=== PATIENT | male | born 1975 | race Two or more races ===

== ENCOUNTER 2021-09-15 07:54 | Day surgery (SDC) | payer OTHER ==
[2021-09-15] MEDS ORDERED: PERCOCET 5-3251 EACH PO (11:46)
== END 2021-09-15 14:20 | disposition home or self-care (01) ==
LOC: CIR.AMB 07:54
PROVIDERS: ATTEND Surgery
DX: C20 Malignant neoplasm of rectum (principal); Z20.822 Contact with and (suspected) exposure to COVID-19
CPT/HCPCS: 36561; C1751

== ENCOUNTER 2021-11-09 11:47 | Emergency (ER) | payer OTHER ==
[~2021-11-09] VITALS: Ht 188 cm; Wt 70.3 kg
[~2021-11-09 11:47] MED LIST: PERCOCET 5-3251 EACH PO
[2021-11-09] MEDS ORDERED: GLUMETZA1000 MG PO (12:06)
[2021-11-10] MEDS ORDERED: [UNRECOGNIZED DRUG - OTHER] (08:41)
[2021-11-10] MEDS ORDERED: ONDANSETRON4 MG/2 M5 (08:41)
[2021-11-10] MEDS ORDERED: OMEPRAZOLE20 MG (08:42)
[2021-11-10] MEDS ORDERED: STOOL SOFTENER240 MG (08:42)
[2021-11-10] MEDS ORDERED: ULTRAM50 MG PO (12:11)
[2021-11-10] MEDS ORDERED: AMOX-CLAV 875-1 EACH PO (12:15)
== END 2021-11-09 12:40 | disposition left against medical advice (07) ==
LOC: ER 11:47
DX: T82.7XXA Infection and inflammatory reaction due to other cardiac and vascular devices, implants and grafts, initial encounter (principal); Z53.29 Procedure and treatment not carried out because of patient's decision for other reasons

== ENCOUNTER 2021-11-09 15:25 | Inpatient (IN) | payer OTHER ==
[~2021-11-09] VITALS: Ht 172.7 cm; Wt 59.0 kg
[~2021-11-09 15:25] MED LIST changes: +GLUMETZA1000 MG PO
[2021-11-10] MEDS ORDERED: [UNRECOGNIZED DRUG - OTHER] (08:41)
[2021-11-10] MEDS ORDERED: ONDANSETRON4 MG/2 M5 (08:41)
[2021-11-10] MEDS ORDERED: STOOL SOFTENER240 MG (08:42)
[2021-11-10] MEDS ORDERED: OMEPRAZOLE20 MG (08:42)
[2021-11-10] MEDS ORDERED: ULTRAM50 MG PO (12:11)
[2021-11-10] MEDS ORDERED: AMOX-CLAV 875-1 EACH PO (12:15)
== END 2021-11-10 18:44 | disposition home or self-care (01) | DRG 253 ==
LOC: ER 15:25 → SURG 20:21 → MEDJ 20:21
PROVIDERS: Surgery; ADMIT Surgery; ATTEND Surgery
PROC: 0JPV0XZ Removal of Tunneled Vascular Access Device from Upper Extremity Subcutaneous Tissue and Fascia, Open Approach (ICD-10-PCS; principal; 2021-11-10 12:00)
PROC: 05PY03Z Removal of Infusion Device from Upper Vein, Open Approach (ICD-10-PCS; principal; 2021-11-10 12:00)
DX: T80.219A Unspecified infection due to central venous catheter, initial encounter (principal); C20 Malignant neoplasm of rectum

== ENCOUNTER 2021-12-15 07:09 | Day surgery (SDC) | payer OTHER ==
[~2021-12-15 07:09] MED LIST changes: +AMOX-CLAV 875-1 EACH PO; +OMEPRAZOLE20 MG; +ONDANSETRON4 MG/2 M5; +STOOL SOFTENER240 MG; +ULTRAM50 MG PO; +[UNRECOGNIZED DRUG - OTHER]
[2021-12-15] MEDS ORDERED: ULTRACET PO (13:56)
== END 2021-12-15 16:05 | disposition home or self-care (01) ==
LOC: CIR.AMB 07:09
PROVIDERS: ATTEND Surgery
DX: C20 Malignant neoplasm of rectum (principal); Z20.822 Contact with and (suspected) exposure to COVID-19
CPT/HCPCS: 36561; C1751

== ENCOUNTER 2022-06-14 08:00 | Inpatient (IN) | payer OTHER ==
[~2022-06-14] VITALS: Ht 188 cm; Wt 74.8 kg
[~2022-06-14 08:00] MED LIST changes: +ULTRACET PO
[2022-06-23] MEDS ORDERED: LEVSIN/SL0.125 MG SL (09:17)
[2022-06-23] MEDS ORDERED: PERCOCET 5-3251 EACH PO (09:18)
[2022-06-23] MEDS ORDERED: INTEGRA F CAPS1 EACH PO (09:18)
== END 2022-06-23 11:39 | disposition home or self-care (01) | DRG 330 ==
LOC: SURG 06-19 06:54 → O/R 06-19 06:54 → SURH 06-19 08:00 → SURG 06-19 14:07
PROVIDERS: ADMIT Surgery; ATTEND Surgery
PROC: 0DTP4ZZ Resection of Rectum, Percutaneous Endoscopic Approach (ICD-10-PCS; 2022-06-19)
PROC: 07BC4ZZ Excision of Pelvis Lymphatic, Percutaneous Endoscopic Approach (ICD-10-PCS; 2022-06-19)
PROC: 0D1B4Z4 Bypass Ileum to Cutaneous, Percutaneous Endoscopic Approach (ICD-10-PCS; 2022-06-19)
PROC: 0DTN4ZZ Resection of Sigmoid Colon, Percutaneous Endoscopic Approach (ICD-10-PCS; principal; 2022-06-19 10:15)
DX: C20 Malignant neoplasm of rectum (principal); K62.5 Hemorrhage of anus and rectum; R59.0 Localized enlarged lymph nodes; K59.09 Other constipation; K62.89 Other specified diseases of anus and rectum; R00.0 Tachycardia, unspecified; D50.0 Iron deficiency anemia secondary to blood loss (chronic); Z20.822 Contact with and (suspected) exposure to COVID-19

== ENCOUNTER 2022-07-05 07:40 | Outpatient (CLI) | payer OTHER ==
[~2022-07-05 07:40] MED LIST changes: +INTEGRA F CAPS1 EACH PO; +LEVSIN/SL0.125 MG SL
== END 2022-07-05 07:53 | disposition home or self-care (01) ==
LOC: NUCLEAR 07:40
PROVIDERS: ATTEND Internal Medicine
DX: C20 Malignant neoplasm of rectum (principal)

== ENCOUNTER 2022-10-02 08:45 | Inpatient (IN) | payer OTHER ==
[~2022-10-02] VITALS: Ht 188 cm; Wt 67.1 kg
[2022-10-13] MEDS ORDERED: TAMS0.4C PO (15:04)
[2022-10-13] MEDS ORDERED: HYOSCYAMINE0.125 M1 SL (15:04)
[2022-10-13] MEDS ORDERED: INTESTINEX680 M1 PO (15:05)
== END 2022-10-13 23:09 | disposition home or self-care (01) | DRG 348 ==
LOC: SURH 10-05 07:00 → O/R 10-05 09:38 → SURG 10-05 09:38 → SURH 10-09 15:08
PROVIDERS: ADMIT Surgery; ATTEND Surgery
PROC: 0DBB4ZZ Excision of Ileum, Percutaneous Endoscopic Approach (ICD-10-PCS; principal; 2022-10-06)
PROC: BW21ZZZ Computerized Tomography (CT Scan) of Abdomen and Pelvis (ICD-10-PCS; 2022-10-11)
DX: Z43.2 Encounter for attention to ileostomy (principal); C20 Malignant neoplasm of rectum; C78.7 Secondary malignant neoplasm of liver and intrahepatic bile duct; K62.5 Hemorrhage of anus and rectum; N13.39 Other hydronephrosis; K56.699 Other intestinal obstruction unspecified as to partial versus complete obstruction; K91.89 Other postprocedural complications and disorders of digestive system; N20.0 Calculus of kidney; R59.0 Localized enlarged lymph nodes; K59.09 Other constipation; E11.9 Type 2 diabetes mellitus without complications; Z79.4 Long term (current) use of insulin

== ENCOUNTER 2023-02-14 09:10 | Outpatient (CLI) | payer OTHER ==
[~2023-02-14 09:10] MED LIST changes: +HYOSCYAMINE0.125 M1 SL; +INTESTINEX680 M1 PO; +TAMS0.4C PO
== END 2023-02-14 09:12 | disposition home or self-care (01) ==
LOC: NUCLEAR 09:10
DX: C20 Malignant neoplasm of rectum (principal); C78.7 Secondary malignant neoplasm of liver and intrahepatic bile duct
CPT/HCPCS: 78815; A9552

== ENCOUNTER 2023-07-31 14:41 | Inpatient (IN) | payer OTHER ==
[~2023-07-31] VITALS: Ht 188 cm; Wt 72.6 kg
[2023-08-01] MEDS ORDERED: ONDANSETRON4 MG/2 M5 (15:43)
[2023-08-01] MEDS ORDERED: IRINOTECAN100 MG/5 M (15:43)
[2023-08-01] MEDS ORDERED: [UNRECOGNIZED DRUG - OTHER] (15:43)
[2023-08-01] MEDS ORDERED: ONDANSETRON ODT8 MG (15:43)
[2023-08-01] MEDS ORDERED: FLUOROURAC500 MG/10 (15:43)
[2023-08-01] MEDS ORDERED: LEUCOVORIN CAL (15:43)
[2023-08-01] MEDS ORDERED: DEXAMETHASO4 MG/1 M1 (15:43)
[2023-08-01] MEDS ORDERED: DIPHENHYDR50 MG/1 M1 (15:43)
[2023-08-01] MEDS ORDERED: JARDIANCE25 MG (15:43)
[2023-08-01] MEDS ORDERED: JANUMET XR 1001 EACH (15:43)
[2023-08-01] MEDS ORDERED: LEUCOVORIN CAL350 MG (15:44)
[2023-08-01] MEDS ORDERED: ATORVASTATIN CA20 MG (15:44)
[2023-08-09] MEDS ORDERED: AVAPRO75 MG PO (13:51)
[2023-08-09] MEDS ORDERED: ATORVASTATIN CA20 MG PO (13:51)
[2023-08-09] MEDS ORDERED: ABANEU-SL TABL1 EACH SL (13:51)
[2023-08-09] MEDS ORDERED: PROTEINEX-18 LI30 ML PO (13:51)
[2023-08-09] MEDS ORDERED: FUSION PLUS CA1 EACH PO (13:51)
[2023-08-09] MEDS ORDERED: HUMULIN N100 UNIT/2 SUBCUTANEO (13:51)
== END 2023-08-09 14:47 | disposition home or self-care (01) | DRG 194 ==
LOC: ER 14:41 → SURH 21:58 → MEDJ 21:58 → SURH 22:12
PROVIDERS: General Practice; Internal Medicine; ADMIT Internal Medicine Geriatric Medicine; ATTEND Internal Medicine Geriatric Medicine
PROC: BW24ZZZ Computerized Tomography (CT Scan) of Chest and Abdomen (ICD-10-PCS; 2023-07-31)
PROC: 02HV33Z Insertion of Infusion Device into Superior Vena Cava, Percutaneous Approach (ICD-10-PCS; 2023-08-01)
PROC: 30233N1 Transfusion of Nonautologous Red Blood Cells into Peripheral Vein, Percutaneous Approach (ICD-10-PCS; principal; 2023-08-02)
DX: J18.9 Pneumonia, unspecified organism (principal); C20 Malignant neoplasm of rectum; C78.00 Secondary malignant neoplasm of unspecified lung; E87.1 Hypo-osmolality and hyponatremia; N17.9 Acute kidney failure, unspecified; R78.81 Bacteremia; D63.0 Anemia in neoplastic disease; E86.0 Dehydration; E11.65 Type 2 diabetes mellitus with hyperglycemia; Z79.4 Long term (current) use of insulin; I12.9 Hypertensive chronic kidney disease with stage 1 through stage 4 chronic kidney disease, or unspecified chronic kidney disease; E11.22 Type 2 diabetes mellitus with diabetic chronic kidney disease; N18.9 Chronic kidney disease, unspecified

== ENCOUNTER 2024-01-10 08:16 | Outpatient (CLI) | payer OTHER ==
[~2024-01-10 08:16] MED LIST changes: +ABANEU-SL TABL1 EACH SL; +ATORVASTATIN CA20 MG; +ATORVASTATIN CA20 MG PO; +AVAPRO75 MG PO; +DEXAMETHASO4 MG/1 M1; +DIPHENHYDR50 MG/1 M1; +FLUOROURAC500 MG/10; +FUSION PLUS CA1 EACH PO; +HUMULIN N100 UNIT/2 SUBCUTANEO; +IRINOTECAN100 MG/5 M; +JANUMET XR 1001 EACH; +JARDIANCE25 MG; +LEUCOVORIN CAL; +LEUCOVORIN CAL350 MG; +ONDANSETRON ODT8 MG; +PROTEINEX-18 LI30 ML PO; +[UNRECOGNIZED DRUG - OTHER]
== END 2024-01-10 08:17 | disposition home or self-care (01) ==
LOC: NUCLEAR 08:16
DX: C20 Malignant neoplasm of rectum (principal); C78.7 Secondary malignant neoplasm of liver and intrahepatic bile duct

== ENCOUNTER 2024-08-11 08:41 | Outpatient (CLI) | payer OTHER | END 2024-08-11 08:43 | disposition home or self-care (01) | LOC: NUCLEAR 08:41 | DX: C20 Malignant neoplasm of rectum (principal); C78.7 Secondary malignant neoplasm of liver and intrahepatic bile duct ==

== ENCOUNTER 2025-02-17 21:17 | Emergency (ER) | payer OTHER ==
[~2025-02-17] VITALS: Ht 188 cm; Wt 78.0 kg
[2025-02-17 21:33] VITALS: BP 168/90; O2SAT 99
[2025-02-17] MEDS ORDERED: MAGNESIUM SULFATE IN WATER 2 GM/50 ML PIGGYBAG IV STA (21:43)
[2025-02-17] MEDS ORDERED: MAGNESIUM SULFATE 50% 1,000 MG/2 ML VIAL ONE (22:05)
[2025-02-18 06:37] LABS: CALCIUM 7.3 mg/dL (8.5-10.1); CREATININE SERUM 1.38 mg/dL (0.70-1.30); GFR 54.32; MAGNESIUM 1.6 mg/dL (1.8-2.4); POTASSIUM 3.66 mEq/L (3.5-5.1)
== END 2025-02-18 04:58 ==
LOC: ER 21:20
PROVIDERS: General Practice
DX: E83.42 Hypomagnesemia (principal)

== ENCOUNTER 2025-03-03 07:29 | Outpatient (CLI) | payer OTHER | END 2025-03-03 07:30 | disposition home or self-care (01) | LOC: NUCLEAR 07:29 | DX: C20 Malignant neoplasm of rectum (principal); C78.7 Secondary malignant neoplasm of liver and intrahepatic bile duct ==

== ENCOUNTER → 2025-06-09 | Emergency (ER) | payer OTHER | END | disposition left against medical advice (07) | LOC: ER 14:05 | DX: Z53.21 Procedure and treatment not carried out due to patient leaving prior to being seen by health care provider (principal) ==

== ENCOUNTER 2025-10-12 07:24 | Outpatient (CLI) | payer OTHER | END 2025-10-12 07:30 | disposition home or self-care (01) | LOC: NUCLEAR 07:24 | DX: C20 Malignant neoplasm of rectum (principal); C78.7 Secondary malignant neoplasm of liver and intrahepatic bile duct; C78.00 Secondary malignant neoplasm of unspecified lung ==